=== PATIENT | female | born 1950 | race Caucasian/White ===

== ENCOUNTER 2022-12-05 11:04 | Day surgery (SDC) | payer MEDICARE, OTHER, SELFPAY ==
--- NOTE | 2022-12-05 | PATH_ITS ---
[facility] Accession Number: [id number] No. of containers..01 Tissue . 01 Material submitted: . gastrointestinal site - ANTRUM . 01 Diagnosis: Stomach, Antrum, Biopsy: Antral mucosa with reactive gastropathy and mild chronic gastritis. Negative for Helicobacter by immunohistochemistry. Negative for intestinal metaplasia. Negative for dysplasia and malignancy. [facility] 12/07/2022 1114 Local . 01 Electronically signed: . Sia Paez MD, Pathologist NPI- [id number] . 01 Gross description: . ANTRUM : Received in formalin are 2 fragment(s) of oliva, soft tissue measuring 0.1 x 0.1 x 0.1 cm to 0.3 x 0.2 x 0.2 cm submitted entirely in 1 cassette(s) /GUERLINE 12/06/2022 1935 Local . 01 Microscopic: . An immunohistochemical stain was performed to evaluate for Helicobacter organisms and is negative. The control stain showed appropriate reactivity. . . * This test was developed and its performance characteristics determined by [facility]. It has not been cleared or approved by the U.[place]. Food and Drug Administration. The FDA has determined that such clearance or approval is not necessary. This test is used for clinical purposes. It should not be regarded as investigational or for research. . 01 Pathologist provided ICD-10: R10.9 . 01 CPT . 723778, Y03402 Specimen Comment: A courtesy copy of this report has been sent to [phone] Performed at: 01 [facility] [address] [place] [address] [address], [place], [place] [id number] MD Juancho Arguelles MD Phone: [phone]
[2022-12-05 11:27] VITALS: BP 154/88; PULSE 80; RESP 16; TEMP 36.5; O2SAT 98; BMI 21.2
[2022-12-05] MEDS: LACTATED RINGERS 1,000 ML 84 ML IV (11:35)
--- NOTE | 2022-12-05 11:58 | PM.HP.1 ---
History of Present Illness History of Present Illness Date Patient Seen: 12/05/22 Time Patient Seen: 11:58 Chief complaint: SDC Narrative: I reviewed my office note. No changes. Relatively new onset reflux. Patient History Family & Social History Social History: household members spouse Tobacco & Substance use: Smoking Status Never smoker alcohol intake current Substance Use Type does not use Meds Home Medications and Allergies Allergies Allergy/AdvReac Type Severity Reaction Status Date / Time No Known Drug Allergies Allergy Verified 12/05/22 11:36 Review of Systems Review of Systems ROS: Yes All systems reviewed with the patient and are negative except as otherwise documented Exam Vital Signs (past 8 hours): - 12/05/22 11:27 Temperature 97.7 F Pulse Rate 80 Respiratory Rate 16 Blood Pressure 154/88 H Pulse Oximetry 98 Oxygen Delivery Method Room Air Oxygen Delivery Method Room Air Const General: cooperative HENMT Head: normal to inspection Eyes General: appearance normal, both eyes and all related structures Neck Neck: normal visual inspection Chest Chest: normal inspection of the chest Resp Effort & Inspection: normal respiratory effort Cardio Rate: regular rate GI Inspection: normal to inspection Skin General: no rashes or lesions noted Neuro General: patient alert and patient awake Extrem General: normal to inspection and no pedal edema Psych Appearance: grossly normal Assessment & Plan Assessment & Plan narrative: 72-year-old with relatively new onset reflux. Diagnostic EGD is pursued. She does have Raynaud's.
--- NOTE | 2022-12-05 11:59 | PM.PREOP ---
Pre-operative Note Interval Note History & Physical reviewed/Exam performed by Physician: Yes Changes to H&P: No ASA Class (for procedural sedation): II
--- NOTE | 2022-12-05 11:59 | PM.OP.EGD ---
Operative Date/Time/Diagnoses Date of procedure: 12/05/22 Time of procedure: 11:59 Pre-op diagnosis: New onset of reflux. History of Raynaud's. Post-op diagnosis: same Procedure & Clinicians Study performed: EGD with biopsies Same procedure as scheduled: Yes Indications: New onset reflux history of Raynaud's. Surgeon: Wilbur Patel Procedure Notes SCOAP/Timeout: Done Procedure in detail: After the risks and benefits were explained, written and verbal informed consent was obtained. The patient was brought into the procedure room and placed into the left lateral decubitus position. Conscious sedation medication was applied as per nursing documentation. The scope was introduced into the mouth through the bite block and advanced under direct visualization to the 2nd portion of the duodenum. The scope was slowly withdrawn carefully examining the mucosa for any defects or lesions. Retroflexed views were accomplished in the stomach. The stomach was decompressed, the scope was then removed from the patient who tolerated the procedure well. Sedation minutes: 9 Complications: none Impression: 1. Duodenum: No pathology appreciated from the bulb through to the 2nd portion. 2. Stomach: The patient had a diffuse gastropathy. Antral biopsies were taken for exclusion of H pylori or other pathology. Retroflexed views of the LES disclosed a sliding hiatal hernia 3. Esophagus: The squamocolumnar junction correlated with the top of the gastric folds. GEJ was at approximately 35 cm from the incisors. The diaphragmatic pinchcock was at about 38 cm from the incisors. Patient had evidence of LA grade a erosive esophagitis the remainder of the esophagus was unremarkable. Endoscopic diagnosis 1. 3 cm hiatal hernia 2. LA grade a erosive esophagitis 3. Gastropathy Post-procedure Plan for aftercare: 1. Await histopathology. 2. Continue anti-reflux therapy. Disposition: PACU
[2022-12-05 12:01] VITALS: BP 116/80; PULSE 69; RESP 24; TEMP 36.6; O2SAT 98
[2022-12-05 12:05] VITALS: BP 120/69; PULSE 83; RESP 19; O2SAT 97
[2022-12-05 12:09] VITALS: BP 123/77; PULSE 68; RESP 14; TEMP 36.6; O2SAT 100
== END 2022-12-05 12:26 | disposition home or self-care (01) ==
PROVIDERS: Family Provider Neuromusculoskeletal Medicine & OMM; PCP Family Medicine; Referring Provider Internal Medicine Gastroenterology; Visit Provider Internal Medicine Gastroenterology
PROC: 0DJ08ZZ Inspection of Upper Intestinal Tract, Via Natural or Artificial Opening Endoscopic (ICD-10-PCS; CPT 43235; principal; 2022-12-05 13:00)
DX: K21.00 Gastro-esophageal reflux disease with esophagitis, without bleeding (principal); K44.9 Diaphragmatic hernia without obstruction or gangrene; K31.9 Disease of stomach and duodenum, unspecified; K29.50 Unspecified chronic gastritis without bleeding
CPT/HCPCS: 43239; J2704